=== PATIENT | female | born 1980 | race Hispanic/Latino ===

== ENCOUNTER 2018-04-07 10:19 | Outpatient (CLI) | payer BC | END 2018-04-07 10:20 | disposition home or self-care (01) | LOC: RAD 10:19 | DX: R10.32 Left lower quadrant pain (principal); R10.31 Right lower quadrant pain ==

== ENCOUNTER 2018-05-07 16:00 | Observation (INO) | payer BC ==
[2018-05-07 16:15] VITALS: BMI 39.1
[2018-05-07] MEDS ORDERED: Sodium Chloride 0.9% 1,000 ML IV STA ×2 (16:29→19:19)
[2018-05-07 16:50] LABS: EOS # 0.1 (0.0-0.7); EOS % 0.7 % (1.5-5.0); HEMOGLOBIN 13.6 g/dL (12.0-16.0); LYMPH # 0.3 (1.2-3.4); LYMPH % 3.6 % (22.0-35.0); MEAN CELL VOLUME 79.2 fl (80.0-105.0); MEAN CORPUSCULAR HEMOGLOBIN 25.3 pg (25.0-35.0); MEAN CORPUSCULAR HGB CONC 31.9 g/dl (31.0-37.0); MEAN PLATELET VOLUME 9.9 fl (7.0-11.0); MONO # 0.3 (0.1-0.6); MONO % 3.5 % (1.0-6.0); PLATELET COUNT 285 10^3/uL (120.0-450.0); RBC 5.38 10^6/uL (3.5-6.1); RED CELL DISTRIBUTION WIDTH 15.1 % (11.5-14.5); WHITE BLOOD COUNT 9.2 10^3/uL (4.5-11.0)
[2018-05-07 17:00] LABS: ALB/GLOB RATIO 1.2 (1.1-1.8); ALBUMIN 4.4 g/dL (3.0-4.8); ALT/SGPT 17 U/L (7-56); AST/SGOT 21 U/L (14-36); BLOOD UREA NITROGEN 14 mg/dL (7-21); CALCIUM 8.7 mg/dL (8.4-10.5); GFR NON-AFRICAN AMERICAN > 60; LIPASE 49 U/L (23-300)
[2018-05-07 17:17] LABS: BAND 2 % (0-2); EOSINOPHIL 1 % (0.0-3.0); LYMPHOCYTE 3 % (22.0-35.0); MONOCYTE 6 % (1.0-6.0); NEUTROPHIL 88 % (50.0-70.0)
[2018-05-07 17:18] LABS: ANISOCYTOSIS SLIGHT; PLATELET ESTIMATE NORMAL (NORMAL); POIKILOCYTOSIS SLIGHT
--- NOTE | 2018-05-07 17:42 | ED PDOC ---
Arrival/HPI - General Chief Complaint: Abdominal Pain Time Seen by Provider: 05/07/18 16:05 Historian: Patient - History of Present Illness Narrative History of Present Illness (Text): 05/07/18 17:33 A 37 year old female, whose past medical history includes diverticulits, asthma, anxiety, depression, and SVT/WPW s/p cardiac ablation, presents to the emergency department complaining of nausea, vomiting, diarrhea, and abdominal pain since this morning. Patient reports she ate a normal diet last night but states she woke up with cramping sore periumbilical pain and associated 3 episodes of vomiting that she describes as yellow, non-bilious, and non-bloody. Patient also notes experiencing a decreased appetite, subjective fever, diaphoresis, and state she is unable to keep any liquids down. Patient denies any sick contacts, recent travel, chills, hematemesis, blood in diarrhea, chest pain, shortness of breath, or any other complaints. PMD: [place] Time/Duration: 24 hours Symptom Onset: Gradual Symptom Course: Unchanged Activities at Onset: Light Context: Home Past Medical History - Provider Review Nursing Documentation Reviewed: Yes - Tetanus Immunization Tetanus Immunization: Unknown - Pulmonary Hx Asthma: Yes - Gastrointestinal Hx Diverticulitis: Yes - Psychiatric Hx Anxiety: Yes Hx Depression: Yes Hx Substance Use: No - Surgical History Other/Comment: cardiac ablasion 2004 - Anesthesia Hx Anesthesia: Yes Hx Anesthesia Reactions: No Hx Malignant Hyperthermia: No - Suicidal Assessment Feels Threatened In Home Enviroment: No Family/Social History - Physician Review Nursing Documentation Reviewed: Yes Family/Social History: No Known Family HX Smoking Status: Never Smoked Hx Alcohol Use: Yes Hx Substance Use: No Hx Substance Use Treatment: No Allergies/Home Meds Allergies/Adverse Reactions: Allergies doxycycline Allergy (Verified 05/07/18 16:05) ANAPHYLAXIS nut - unspecified Allergy (Verified 05/07/18 16:05) ANAPHYLAXIS soy Allergy (Verified 05/07/18 16:05) ANAPHYLAXIS Home Medications: Home Meds Medication Instructions Recorded Confirmed Bupropion HCl [Bupropion HCl Xl] 150 mg PO DAILY 06/12/14 03/11/15 Citalopram Hydrobromide 20 mg PO QAM 06/12/14 03/11/15 [Citalopram] Levalbuterol HCl [Xopenex 3 ml] 3 ml IH PRN PRN 06/12/14 03/11/15 Review of Systems - Physician Review All systems were reviewed & negative as marked: Yes - Review of Systems Constitutional: Fevers. absent: Other (chills) Respiratory: absent: SOB Cardiovascular: absent: Chest Pain Gastrointestinal: Diarrhea (denies any blood in diarrhea), Nausea, Vomiting, Appetite Changes (decreased appetite), Other (hematemesis) Endocrine: Diaphoresis Physical Exam Vital Signs Reviewed: Yes Vital Signs Temp Pulse Resp BP Pulse Ox 05/07/18 16:06 98.2 F 116 H 18 140/90 99 Temperature: Afebrile Blood Pressure: Normal Pulse: Tachycardic Respiratory Rate: Normal Mental Status: Positive for: Alert and Oriented X 3 - Systems Exam Head: Present: Atraumatic, Normocephalic Pupils: Present: PERRL Extroacular Muscles: Present: EOMI Conjunctiva: Present: Normal Respiratory/Chest: Present: Clear to Auscultation, Good Air Exchange. No: Respiratory Distress, Accessory Muscle Use Cardiovascular: Present: Tachycardic Abdomen: Present: Tenderness (diffused tenderness). No: Rebound, Guarding, Other (no rigidity) Upper Extremity: Present: Normal Inspection. No: Cyanosis, Edema Lower Extremity: Present: Normal Inspection. No: Edema Neurological: Present: GCS=15, CN II-XII Intact, Speech Normal Skin: Present: Warm, Dry, Normal Color. No: Rashes Psychiatric: Present: Alert, Oriented x 3, Normal Insight, Normal Concentration Medical Decision Making ED Course and Treatment: 05/07/18 17:35 Impression: 37 year old female presenting to the emergency room complaining of nausea, vomiting, diarrhea, and abdominal pain. Plan: -- Abdomen & Pelvis CT -- EKG -- Pepcid -- Zofran -- IV fluids -- Urine culture -- Urinalysis -- Reassess and disposition Prior Visits: Notes and results from previous visits were reviewed. Progress Notes: 05/07/18 17:40 EKG: Ordered, reviewed, and independently interpreted the EKG. Rate : 116 BPM Rhythm : Sinus tachycardia - Lab Interpretations Lab Results: Total Bilirubin 0.5 mg/dL (0.2-1.3) 05/07/18 16:47 AST 21 U/L (14-36) 05/07/18 16:47 ALT 17 U/L (7-56) 05/07/18 16:47 Alkaline Phosphatase 70 U/L (38-126) 05/07/18 16:47 Total Protein 8.0 g/dL (5.8-8.3) 05/07/18 16:47 Albumin 4.4 g/dL (3.0-4.8) 05/07/18 16:47 Globulin 3.6 gm/dL 05/07/18 16:47 Albumin/Globulin Ratio 1.2 (1.1-1.8) 05/07/18 16:47 Lipase 49 U/L (23-300) 05/07/18 16:47 - RAD Interpretation Radiology Orders: 05/07/18 16:29 ABD & PELVIS IV CONTRAST ONLY [CT] Stat - Medication Orders Current Medication Orders: Discontinued Medications Famotidine (Pepcid) 20 mg IVP STAT STA Stop: 05/07/18 16:30 Last Admin: 05/07/18 16:51 Dose: 20 mg IVP Administration Document 05/07/18 16:51 BB (Rec: 05/07/18 16:51 [id number] Charges for Administration # of IVP Administrations 1 Sodium Chloride (Sodium Chloride 0.9%) 1,000 mls @ 1,000 mls/hr IV .Q1H STA Stop: 05/07/18 17:28 Last Admin: 05/07/18 16:51 Dose: 1,000 mls/hr eMAR Start Stop Document 05/07/18 16:51 BB (Rec: 05/07/18 16:51 [id number]) Intravenous Solution Start Date 05/07/18 Start Time 16:51 Ondansetron HCl (Zofran Inj) 4 mg IVP STAT STA Stop: 05/07/18 16:30 Last Admin: 05/07/18 16:51 Dose: 4 mg IVP Administration Document 05/07/18 16:51 BB (Rec: 05/07/18 16:51 BB [id number]) Charges for Administration # of IVP Administrations 1 - Scribe Statement The provider has reviewed the documentation as recorded by the Gayatri Ferguson All medical record entries made by the Scribe were at my direction and personally dictated by me. I have reviewed the chart and agree that the record accurately reflects my personal performance of the history, physical exam, medical decision making, and the department course for this patient. I have also personally directed, reviewed, and agree with the discharge instructions and disposition. Disposition/Present on Arrival - Present on Arrival Any Indicators Present on Arrival: No History of DVT/PE: No History of Uncontrolled Diabetes: No Urinary Catheter: No History of Decub. Ulcer: No History Surgical Site Infection Following: None - Disposition Have Diagnosis and Disposition been Completed?: Yes Diagnosis: Colitis Disposition: HOSPITALIZED Disposition Time: 19:00 Patient Problems: Current Active Problems Problem Status Onset Colitis Acute Condition: STABLE
[2018-05-07 18:32] LABS: PH,URINE 7.5 (4.7-8.0); URINE BILIRUBIN NEGATIVE (NEGATIVE); URINE BLOOD NEGATIVE (NEGATIVE); URINE GLUCOSE (UA) NEGATIVE (NEGATIVE); URINE LEUKOCYTE ESTERASE TRACE Leu/uL (NEGATIVE); URINE PROTEIN TRACE mg/dL (<30 mg/dL); URINE UROBILINOGEN 0.2 E.U./dL (<1 E.U./dL)
[2018-05-07 18:39] LABS: URINE APPEARANCE CLEAR (CLEAR); URINE COLOR YELLOW (YELLOW)
[2018-05-07 18:44] LABS: URINE RBC 0 - 2 /hpf (0-2)
[2018-05-07] MEDS ORDERED: Iohexol 350 MG/100 ML VIAL ONE (20:03)
--- NOTE | 2018-05-07 22:15 | CARD ---
APPROVED REPORT Date of service: 05/07/2018 EKG Measurement Heart [id number] <Conclusion> Sinus tachycardia Possible Left atrial enlargement Incomplete right bundle branch block Possible Anterior infarct, age undetermined NDSTT abnormalities Abnormal ECG
--- NOTE | 2018-05-07 22:54 | ED PDOC ---
Physical Exam Vital Signs Temp Pulse Resp BP Pulse Ox 05/07/18 18:36 98.0 F 98 H 17 134/79 96 05/07/18 16:06 98.2 F 116 H 18 140/90 99 Medical Decision Making ED Course and Treatment: 05/07/18 21:00 Case endorsed to me by . Ct abdomen/pelvis pending. 05/07/18 22:56 patient states that she still feel run down and not strong enough to go home and function. patient reports that she recently finished amoxicillin for strep throat and a course of flagyl for diverticulitis. 05/08/18 00:[address] patino. patient to be admitted for presumed infectious colitis, rule out c.diff. consult to dr. lora and infectious disease - Lab Interpretations Lab Results: Total Bilirubin 0.5 mg/dL (0.2-1.3) 05/07/18 16:47 AST 21 U/L (14-36) 05/07/18 16:47 ALT 17 U/L (7-56) 05/07/18 16:47 Alkaline Phosphatase 70 U/L (38-126) 05/07/18 16:47 Total Protein 8.0 g/dL (5.8-8.3) 05/07/18 16:47 Albumin 4.4 g/dL (3.0-4.8) 05/07/18 16:47 Globulin 3.6 gm/dL 05/07/18 16:47 Albumin/Globulin Ratio 1.2 (1.1-1.8) 05/07/18 16:47 Lipase 49 U/L (23-300) 05/07/18 16:47 Urine Color Yellow (YELLOW) 05/07/18 18:24 Urine Appearance Clear (CLEAR) 05/07/18 18:24 Urine pH 7.5 (4.7-8.0) 05/07/18 18:24 Ur Specific [place] 1.020 (1.005-1.035) 05/07/18 18:24 Urine Protein Trace mg/dL (<30 mg/dL) H 05/07/18 18:24 Urine Glucose (UA) Negative mg/dL (NEGATIVE) 05/07/18 18:24 Urine Ketones 15 mg/dL (NEGATIVE) H 05/07/18 18:24 Urine Blood Negative (NEGATIVE) 05/07/18 18:24 Urine Nitrate Negative (NEGATIVE) 05/07/18 18:24 Urine Bilirubin Negative (NEGATIVE) 05/07/18 18:24 Urine Urobilinogen 0.2 E.U./dL (<1 E.U./dL) 05/07/18 18:24 Ur Leukocyte Esterase Trace Michelle/uL (NEGATIVE) H 05/07/18 18:24 Urine RBC 0 - 2 /hpf (0-2) 05/07/18 18:24 Urine WBC 2 - 5 /hpf (0-6) 05/07/18 18:24 Ur Epithelial Cells 1 - 3 /hpf (0-5) 05/07/18 18:24 - RAD Interpretation Narrative RAD Interpretations (Text): 05/07/18 22:21 Ct abdomen/pelvis IMPRESSION: 1. Evidence of diffuse gastroenteritis and colitis. 2. Very small hiatal hernia; with possible reflux esophagitis. Electronically signed on May 07, 2018 10:21:53 PM EDT by: Gallo Antunez M.D., OCTAVIA Certified By [facility] & [facility] Fellowship Trained MRI and CT Specialist Radiology Orders: 05/07/18 16:29 ABD & PELVIS IV CONTRAST ONLY [CT] Stat Director Integrated: Radiologist - Medication Orders Current Medication Orders: Discontinued Medications Famotidine (Pepcid) 20 mg IVP STAT STA Stop: 05/07/18 16:30 Last Admin: 05/07/18 16:51 Dose: 20 mg IVP Administration Document 05/07/18 16:51 BB (Rec: 05/07/18 16:51 [id number]) Charges for Administration # of IVP Administrations 1 Sodium Chloride (Sodium Chloride 0.9%) 1,000 mls @ 1,000 mls/hr IV .Q1H STA Stop: 05/07/18 17:28 Last Admin: 05/07/18 16:51 Dose: 1,000 mls/hr eMAR Start Stop Document 05/07/18 16:51 BB (Rec: 05/07/18 16:51 BB [id number]) Intravenous Solution Start Date 05/07/18 Start Time 16:51 Sodium Chloride (Sodium Chloride 0.9%) 1,000 mls @ 999 mls/hr IV .Q1H1M STA Stop: 05/07/18 20:19 Last Admin: 05/07/18 19:35 Dose: 999 mls/hr eMAR Start Stop Document 05/07/18 19:35 AD (Rec: 05/07/18 19:36 AD [id number]) Intravenous Solution Start Date 05/07/18 Start Time 19:36 Ketorolac Tromethamine (Toradol) 30 mg IVP STAT STA Stop: 05/07/18 19:20 Last Admin: 05/07/18 19:36 Dose: 30 mg MAR Pain Assessment Document 05/07/18 19:36 AD (Rec: 05/07/18 19:36 [id number]) Pain Reassessment Is this a pain reassessment? No IVP Administration Document 05/07/18 19:36 AD (Rec: 05/07/18 19:36 [id number]) Charges for Administration # of IVP Administrations 1 Ondansetron HCl (Zofran Inj) 4 mg IVP STAT STA Stop: 05/07/18 16:30 Last Admin: 05/07/18 16:51 Dose: 4 mg IVP Administration Document 05/07/18 16:51 BB (Rec: 05/07/18 16:51 BB [id number]) Charges for Administration # of IVP Administrations 1 Disposition/Present on Arrival - Present on Arrival Any Indicators Present on Arrival: No History of DVT/PE: No History of Uncontrolled Diabetes: No Urinary Catheter: No History of Decub. Ulcer: No History Surgical Site Infection Following: None - Disposition Have Diagnosis and Disposition been Completed?: Yes Diagnosis: Colitis Disposition: HOSPITALIZED Disposition Time: 00:02 Patient Plan: Admission Patient Problems: Current Active Problems Problem Status Onset Colitis Acute Condition: STABLE Forms: [employer] (Malay)
[2018-05-07] MEDS ORDERED: Ciprofloxacin 400mg/200ml D5W 400 MG/200 ML BAG IVPB STA (23:00)
[2018-05-07] MEDS ORDERED: metroNIDAZOLE IV 500 mg/100 ml 500 MG/100 ML BAG IVPB STA (23:01)
[2018-05-08] MEDS: Piperacillin/Tazobact 3.375 gm 100 ML IVPB SCH ×3 (08:26→21:36)
--- NOTE | 2018-05-08 08:47 | CT ---
Date of service: 05/07/2018 PROCEDURE: CT Abdomen and Pelvis with contrast HISTORY: diffuse abd. pain- h/o diverticulitis COMPARISON: None available. TECHNIQUE: CT scan of the abdomen and pelvis was performed after administration of intravenous contrast. Oral contrast was not administered. Coronal and sagittal reformatted images were obtained. Contrast dose: 100 mL Omnipaque 350 Radiation dose: Total exam DLP = 999.59 mGy-cm. This CT exam was performed using one or more of the following dose reduction techniques: Automated exposure control, adjustment of the mA and/or kV according to patient size, and/or use of iterative reconstruction technique. FINDINGS: LOWER THORAX: The visualized lungs are clear. LIVER: Mild hepatomegaly and fatty liver. Normal homogeneous enhancement. No gross lesion or ductal dilatation. GALLBLADDER AND BILE DUCTS: Well distended. No calcified gallstones, wall thickening or pericholecystic fluid. PANCREAS: Normal in size with homogeneous enhancement. No gross lesion or ductal dilatation. SPLEEN: Normal in size and appearance. ADRENALS: No discrete nodule. KIDNEYS AND URETERS: Normal in size with homogeneous enhancement. No hydronephrosis. No solid mass. VASCULATURE: No aortic aneurysm. There are no aortic atherosclerotic calcifications or mural plaque present. BOWEL: Evaluation of the bowel is limited in the absence of oral contrast. The proximal small bowel loops are normal in caliber. There are fluid-filled mildly dilated mid and distal small bowel loops. There is fluid in the colon. No bowel wall thickening or obstruction. APPENDIX: No inflammatory changes in the right lower quadrant. PERITONEUM: No free fluid. No free air. LYMPH NODES: No enlarged lymph nodes. BLADDER: Well distended and normal in appearance. REPRODUCTIVE: The uterus is normal in size. BONES: No acute fracture. Within normal limits for the patient's age. OTHER FINDINGS: There is a small sliding hiatal hernia. IMPRESSION: Fluid-filled mildly dilated mid and distal small bowel loops and fluid in colon may represent diarrhea or nonspecific infectious/inflammatory enteritis. No bowel obstruction. A preliminary report was provided by [facility].
[2018-05-08] MEDS ORDERED: Albuterol HFA 90 mcg/actuation (8 g) IH PRN (10:11)
[2018-05-08] MEDS ORDERED: Albuterol 0.083% Inhal Sol (2.5 mg/3 mL) UD IH PRN (10:30)
[2018-05-08] MEDS ORDERED: SALMETEROL IH SCH (11:00)
[2018-05-08] MEDS ORDERED: Budesonide 0.5 mg/2 ml Inhal Susp UD IH SCH ×2 (11:00→20:00)
[2018-05-08] MEDS ORDERED: Arformoterol 15 mcg/2 ml Inh Sol IH SCH ×3 (11:00→20:00)
[2018-05-08] MEDS ORDERED: Fluticasone-Salmeterol 250-50mcg Diskus IH SCH (11:00)
[2018-05-08] MEDS: SALMETEROL IH SCH ×2 (11:18→22:43)
[2018-05-08] MEDS: FLOVENT IH SCH ×2 (11:18→22:43)
[2018-05-08] MEDS ORDERED: Home Med 1 UNIT IH SCH (11:30)
--- NOTE | 2018-05-08 15:05 | HP ---
DATE OF EXAM: 05/08/2018 HISTORY OF PRESENT ILLNESS: She is a 37-year-old female who presented to the emergency room of nauseous, vomiting, diarrhea, abdominal pain, cramping, three episodes of vomiting yellow nonbilious and nonbloody, poor appetite, fevers, sweating, cannot keep the liquids down. PAST MEDICAL HISTORY: She has a past medical history of diverticulitis, asthma, anxiety, depression, status post cardiac ablation was in 2004. FAMILY HISTORY: No known family history. SOCIAL HISTORY: No smoking. She does drink alcohol. No drugs. ALLERGIES: SHE HAS ALLERGIES TO DOXYCYCLINE, NUTS, SOY. MEDICATIONS: She takes the bupropion, citalopram and Xopenex. REVIEW OF SYSTEMS: On review of systems, no acute vision or hearing changes. No sore throat. No neck pain. She has fever and chills. No shortness of breath. No chest pain, diarrhea, nonbloody. There is nausea and vomiting, appetite changes. No constipation. No apparent ulcers or rashes, but she is sweating and chills. PHYSICAL EXAMINATION VITAL SIGNS: She has a 98.2 temperature, 116 pulse, 18 respiratory rate, 140/90 blood pressure and 99% O2 sat. GENERAL: She is alert and oriented x3, nontoxic, but not doing well. HEENT: Head is atraumatic and normocephalic. Extraocular muscles are intact. Pupils equal and reactive to light. Throat is moist. NECK: Supple. HEART: Tachycardic. LUNGS: Decreased breath sounds, but clear to auscultation. No wheezes, rhonchi or rales. ABDOMEN: Diffusely tenderness throughout the whole abdomen. No guarding or rebound. Decreased bowel sounds. EXTREMITIES: No edema. She has little bit obese. NEUROLOGIC: GCS 15. Cranial nerves II-XII grossly intact. SKIN: Warm and dry. No apparent rashes. Alert and oriented x3. LYMPHATICS: Thyroid midline. No palpable appreciable lymphadenopathy. LABORATORY DATA: She had a bunch of tests done. She has a urine which showed trace. She has a 138 sodium, potassium 4.2, BUN 40, creatinine 0.7, GFR is greater than 60, sugar is 109, calcium 8.7, magnesium 1.7, total bili is 0.5, AST is 21, ALT is 17, alk phos 70, total protein is 8, albumin is 4.4 and lipase is 49. White count is 9.2, hemoglobin 13.6, hematocrit 42.6 and platelets of 285. CAT scan of the abdomen and pelvis showed enteritis. Has a history of diverticulitis. She is being seen by GI and Infectious Disease. She was placed on Zosyn. ER doctor started on Cipro, Flagyl, she was changes Zosyn. We will check her labs tomorrow. She will have clear fluids and she will continue with the medications. Hopefully she will improve. Jorge Luis Welch DO [email or web address]
--- NOTE | 2018-05-08 16:58 | CP.PCM.CON ---
<Chucho Rivera - Last Filed: 05/08/18 16:58> History of Present Illness - History of Present Illness History of Present Illness: PGY 5 Gi Consult Hilaria Navarro is a 37F w/ hx of diverticulits, asthma, anxiety, depression, and SVT/WPW s/p cardiac ablation, presents to the emergency department complaining of nausea, vomiting, diarrhea, and abdominal pain for 1 day. Pt states that the onset was sudden. She noted 7-8 out of 10 abd pain in the periumbilical area. Denies any aggravating or alleviating factors. Denied any fever, chills or diaphoresis. Pt noted associated non-bloody diarrhea and non- blood bilous vomiting. Pt had a CT abd in the ER which revealed slightly dilated small bowel loops. She was placed on cipro and flaygl in the ER. Pt reports her uncle with similar complaints during the past week. Denies any recent travel. Pt did have a course of flagyl for possible episode of diverticulitis as an outpt (apparently diag as an oupt clinically no radiographic evidence or hx). Denies any rectal bleeding or weightloss. Pt reports having a colonscopy and EGD > 5years ago. 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 nuts PMHx: see above PShx: denies Family hx: lap olivia mother and aunt, denies any GI related malig Social hxL denies smoking, ETOH, and illicit drugs Endo hx: see above ROS: 12 point ROS conducted, neg other than above Past Patient History - Tetanus Immunizations Tetanus Immunization: Unknown - Past Social History Smoking Status: Never Smoked - PULMONARY Hx Asthma: Yes - MUSCULOSKELETAL/RHEUMATOLOGICAL Hx Falls: No - GASTROINTESTINAL Hx Diverticulitis: Yes - PSYCHIATRIC Hx Anxiety: Yes Hx Depression: Yes - SURGICAL HISTORY Other/Comment: cardiac ablasion 2004 - ANESTHESIA Hx Anesthesia: Yes Hx Anesthesia Reactions: No Hx Malignant Hyperthermia: No Meds Allergies/Adverse Reactions: Allergies Allergy/AdvReac Type Severity Reaction Status Date / Time doxycycline Allergy ANAPHYLAXIS Verified 05/07/18 16:05 nut - unspecified Allergy ANAPHYLAXIS Verified 05/07/18 16:05 soy Allergy ANAPHYLAXIS Verified 05/07/18 16:05 - Medications Medications: Current Medications Albuterol Sulfate (Albuterol 0.083% Inhal Juliann (2.5 Mg/3 Ml) Ud) 2.5 mg IH [id number] PRN PRN Reason: Shortness of Breath Bupropion HCl (Wellbutrin) 75 mg PO BID [facility] Last Admin: 05/08/18 11:18 Dose: 75 mg Citalopram Hydrobromide (Celexa) 25 mg PO DAILY [facility] Home Med (Home Med) 1 unit IH [id number] [facility] Last Admin: 05/08/18 11:18 Dose: 1 unit Home Med (Home Med) 1 unit IH [id number] [facility] Last Admin: 05/08/18 11:18 Dose: 1 unit Piperacillin Sod/Tazobactam Sod (Zosyn 3.375 In Ns 100ml) 100 mls @ 25 mls/hr IVPB Q8 [facility]; Protocol Stop: 05/15/18 07:46 Last Admin: 05/08/18 14:40 Dose: 25 mls/hr Ketorolac Tromethamine (Toradol) 30 mg IVP Q6H PRN PRN Reason: Pain, moderate (4-7) Last Admin: 05/08/18 14:40 Dose: 30 mg Physical Exam - Head Exam Head Exam: ATRAUMATIC, NORMOCEPHALIC - Eye Exam Eye Exam: Normal appearance - ENT Exam ENT Exam: Mucous Membranes Moist, Normal Exam - Neck Exam Neck exam: Positive for: Normal Inspection - Respiratory Exam Respiratory Exam: Clear to Auscultation Bilateral, NORMAL BREATHING PATTERN. absent: Rales, Rhonchi, Wheezes, Respiratory Distress - Cardiovascular Exam Cardiovascular Exam: REGULAR RHYTHM, +S1, +S2 - GI/Abdominal Exam GI & Abdominal Exam: Normal Bowel Sounds, Soft, Tenderness (periumbilical). absent: Diminished Bowel Sounds, Distended, Firm, Guarding, Hernia, Organomegaly, Rebound, Rigid - Extremities Exam Extremities exam: Negative for: joint swelling, pedal edema - Neurological Exam Neurological exam: Alert, Oriented x3 - Psychiatric Exam Psychiatric exam: Normal Affect, Normal Mood - Skin Skin Exam: Dry, Intact, Normal Color, Warm Results - Vital Signs Recent Vital Signs: Last Vital Signs Temp 98.7 F 05/08/18 14:00 Pulse 86 05/08/18 14:00 Resp 18 05/08/18 14:00 BP 113/70 05/08/18 14:00 Pulse Ox 96 05/08/18 14:00 - Labs Result Diagrams: 05/07/18 16:47 05/07/18 16:47 Labs: Laboratory Results - last 24 hr 05/07/18 05/07/18 05/07/18 16:47 16:47 18:24 Neutrophils % (Manual) 88 H Band Neutrophils % 2 Lymphocytes % (Manual) 3 L Monocytes % (Manual) 6 Eosinophils % (Manual) 1 Platelet Evaluation Normal Poikilocytosis (manual Slight Anisocytosis (manual) Slight Sodium 138 Potassium 4.2 Chloride 108 H Carbon Dioxide 22 Anion Gap 13 BUN 14 Creatinine 0.7 Est GFR ( Amer) > 60 Est GFR (Non-Af Amer) > 60 Random Glucose 109 Calcium 8.7 Magnesium 1.7 Total Bilirubin 0.5 AST 21 ALT 17 Alkaline Phosphatase 70 Total Protein 8.0 Albumin 4.4 Globulin 3.6 Albumin/Globulin Ratio 1.2 Lipase 49 Urine Color Yellow Urine Appearance Clear Urine pH 7.5 Ur Specific [place] 1.020 Urine Protein Trace H Urine Glucose (UA) Negative Urine Ketones 15 H Urine Blood Negative Urine Nitrate Negative Urine Bilirubin Negative Urine Urobilinogen 0.2 Ur Leukocyte Esterase Trace H Urine RBC 0 - 2 Urine WBC 2 - 5 Ur Epithelial Cells 1 - 3 Assessment & Plan - Assessment and Plan (Free Text) Assessment: Hilaria Navarro is a 37F w/ hx of atopic allergies, allergic colitis? who presents to the ER with Nausea, vomiting, and diarrhea Acute Gastroenteritis, etiolgy likely viral Abd pain (resolved) likely 2/2 above Nausea and vomiting lkely 2/2 above hx of allergic colitis? Plan: -advance diet to reg as tolerate -zofran PRN -PPI protonix 40mg daily -encourage hydration -no indication for abx from GI standpoint - agree with c.diff and culture if diarrhea persists -no indication for endoscopy at this time D/W Dr. Abdi <Ildefonso Abdi - Last Filed: 05/09/18 16:50> Meds - Medications Medications: Current Medications Albuterol Sulfate (Albuterol 0.083% Inhal Juliann (2.5 Mg/3 Ml) Ud) 2.5 mg IH [id number] PRN PRN Reason: Shortness of Breath Bupropion HCl (Wellbutrin) 75 mg PO BID [facility] Last Admin: 05/09/18 10:27 Dose: 75 mg Citalopram Hydrobromide (Celexa) 25 mg PO DAILY [facility] Last Admin: 05/09/18 10:26 Dose: 25 mg Home Med (Home Med) 1 unit IH [id number] [facility] Last Admin: 05/09/18 10:27 Dose: 1 unit Home Med (Home Med) 1 unit IH [id number] [facility] Last Admin: 05/09/18 10:27 Dose: 1 unit Piperacillin Sod/Tazobactam Sod (Zosyn 3.375 In Ns 100ml) 100 mls @ 25 mls/hr IVPB Q8 [facility]; Protocol Stop: 05/15/18 07:46 Last Admin: 05/09/18 05:23 Dose: 25 mls/hr Sodium Chloride (Sodium Chloride 0.45%) 1,000 mls @ 40 mls/hr IV .Q24H [facility] Last Admin: 05/09/18 11:45 Dose: 40 mls/hr Ketorolac Tromethamine (Toradol) 30 mg IVP Q6H PRN PRN Reason: Pain, moderate (4-7) Last Admin: 05/08/18 14:40 Dose: 30 mg Ondansetron HCl (Zofran Inj) 4 mg IVP Q6H PRN PRN Reason: Nausea/Vomiting Pantoprazole Sodium (Protonix Inj) 40 mg IVP DAILY [facility] Last Admin: 05/09/18 11:44 Dose: 40 mg Results - Vital Signs Recent Vital Signs: Last Vital Signs Temp 98.6 F 05/09/18 06:00 Pulse 63 05/09/18 06:00 Resp 20 05/09/18 06:00 BP 111/76 05/09/18 06:00 Pulse Ox 96 05/09/18 06:00 - Labs Result Diagrams: 05/09/18 07:00 05/09/18 07:00 Labs: Laboratory Results - last 24 hr 05/09/18 05/09/18 05/09/18 07:00 07:00 13:54 WBC 3.9 L D RBC 4.55 Hgb 11.3 L D Hct 36.3 MCV 79.8 L MCH 24.8 L MCHC 31.1 RDW 15.1 H Plt Count 240 MPV 9.9 Sodium 139 Potassium 3.4 L Chloride 106 Carbon Dioxide 25 Anion Gap 11 BUN 7 Creatinine 0.8 Est GFR ( Amer) > 60 Est GFR (Non-Af Amer) > 60 Random Glucose 83 Calcium 8.2 L Total Bilirubin 0.2 AST 32 ALT 22 Alkaline Phosphatase 50 Total Protein 6.3 Albumin 3.1 Globulin 3.3 Albumin/Globulin Ratio 0.9 L Urine Color Yellow Urine Appearance Clear Urine pH 6.0 Ur Specific [place] 1.010 Urine Protein Negative Urine Glucose (UA) Negative Urine Ketones Negative Urine Blood Trace-intact H Urine Nitrate Negative Urine Bilirubin Negative Urine Urobilinogen 0.2 Ur Leukocyte Esterase Small H Urine RBC 1 - 3 H Urine WBC 2 - 5 Ur Epithelial Cells 4 - 5 Urine Bacteria Small Attending/Attestation - Attestation I have personally seen and examined this patient.: Yes I have fully participated in the care of the patient.: Yes I have reviewed all pertinent clinical information: Yes Notes (Text): 05/09/18 16:50 Late entry The pt was seen and examined on Thursday. Chart was reviewed. Findings assessment and recommendations were discussed with Dr. Rivera and documented above.
--- NOTE | 2018-05-08 23:29 | CON ---
DATE: 05/08/2018 The patient is seen earlier today in 578, bed 1. No fever. No chills. CHIEF COMPLAINT: Abdominal pain, diarrhea, nausea and vomiting times 1-day duration. HISTORY OF PRESENT ILLNESS: This is a 37-year-old female with asthma, anxiety, depression, supraventricular tachycardia, WPW, and had a cardiac ablation who was admitted now with GI symptoms and she was seen in the emergency room by Dr. Holder , complaining of nausea, vomiting, diarrhea, and abdominal pain since morning of admission. She had her normal diet. She woke up with cramping, periumbilical pain. She had three episode of vomiting, nonbilious, nonbloody, yellow in color and did not have any fevers in the hospital, but she had subjective fevers and she is unable to tolerate anything p.o. She denies any dysuria or frequency, headaches or blurred vision. PAST MEDICAL HISTORY: Significant for asthma, anxiety, depression, SVT, WPW, and has a history of diverticulitis. PAST SURGICAL HISTORY: Significant for cardiac ablation in 2004. ALLERGIES: THE PATIENT IS ALLERGIC TO DOXYCYCLINE AND TYPE OF ALLERGY IS NOT QUITE CLEAR. MEDICATIONS AT HOME: Include prednisone and nebulizer. PHYSICAL EXAMINATION: GENERAL: The patient is seen in bed, no acute distress, and nontoxic. VITAL SIGNS: Temperature of 98, blood pressure 140/90, respiratory rate of 20, and heart rate of 116. HEENT: Unremarkable. NECK: Supple. LUNGS: Decreased breath sounds. HEART: Normal S1 and S2. ABDOMEN: Soft and nontender. No organomegaly. No rebound. No guarding. No masses. LABORATORY DATA: Reveals a white count of 9.2, hemoglobin of 13, and platelets of 285. Chemistries are noted. Urinalysis is noted. Microbiology is pending. The patient had a CAT scan of the abdomen and pelvis, which showed enteritis and there is nonspecific inflammatory changes. Miguel's note is reviewed. Dr. Jorge Luis Welch's history and physical examination is reviewed. Emergency room chart second note is reviewed. ASSESSMENT AND PLAN: A 37-year-old female with asthma, anxiety, depression, supraventricular tachycardia, [id number], admitted with nausea, vomiting, and tachycardia. Enteritis with tachycardia, etiology of which is not clear. Concern about inflammatory bowel disease. We will check on the cultures of the blood, stool, urine, Clostridium difficile, for pseudomembranous colitis, starting empirically on Zosyn and pending initial workup results and GI evaluation and we will make further recommendations. Mike Castro MD
[2018-05-09] MEDS: Piperacillin/Tazobact 3.375 gm 100 ML IVPB SCH ×3 (05:23→21:15)
[2018-05-09 07:35] LABS: HEMOGLOBIN 11.3 g/dL (12.0-16.0); MEAN CELL VOLUME 79.8 fl (80.0-105.0); MEAN CORPUSCULAR HEMOGLOBIN 24.8 pg (25.0-35.0); MEAN CORPUSCULAR HGB CONC 31.1 g/dl (31.0-37.0); MEAN PLATELET VOLUME 9.9 fl (7.0-11.0); RBC 4.55 10^6/uL (3.5-6.1); RED CELL DISTRIBUTION WIDTH 15.1 % (11.5-14.5); WHITE BLOOD COUNT 3.9 10^3/uL (4.5-11.0)
[2018-05-09 07:57] LABS: ALB/GLOB RATIO 0.9 (1.1-1.8); ALBUMIN 3.1 g/dL (3.0-4.8); ALT/SGPT 22 U/L (7-56); AST/SGOT 32 U/L (14-36); BLOOD UREA NITROGEN 7 mg/dL (7-21); CALCIUM 8.2 mg/dL (8.4-10.5); GFR NON-AFRICAN AMERICAN > 60
[2018-05-09] MEDS: SALMETEROL IH SCH ×2 (10:27→21:16)
[2018-05-09] MEDS: FLOVENT IH SCH ×2 (10:27→21:16)
[2018-05-09] MEDS ORDERED: Sodium Chloride 0.45% 1,000 ML IV SCH ×2 (10:45→10:48)
--- NOTE | 2018-05-09 12:36 | PN ---
DATE: 05/09/2018 SUBJECTIVE: The patient is in bed in no acute distress, nontoxic. She states that she is still having some nausea, unable to tolerate any p.o. She has not had any diarrhea this morning. She is comfortable. PHYSICAL EXAMINATION: VITAL SIGNS: Temperature of 98, blood pressure is 131/70, respiratory of 80, heart rate of 92. HEENT: Unremarkable. NECK: Supple. LUNGS: Have decreased breath sounds. HEART: Normal S1, S2. ABDOMEN: Soft, nontender. LABORATORY EXAMINATION: Reveals a white count is down to 3.9, hemoglobin of 11, platelets of 240. The differential is noted. Chemistries are reviewed. The LFTs are normal. Urinalysis is unremarkable. Blood cultures; the blood cultures are reported to be no growth at 24 hours. CAT scan of the abdomen and pelvis is noted. Review of orders reveals the Clostridium difficile is pending and the stool cultures are still pending. The patient is on Zosyn. ASSESSMENT AND PLAN: This is a 37-year-old female with asthma and anxiety, depression, supraventricular tachycardia, with cardiac ablation in 2004, presenting with gastrointestinal symptoms now and admitted with nausea, vomiting, diarrhea, tachycardia and #1 is enteritis with tachycardia. No fevers. Concerned about inflammatory bowel disease. Patient has also Pseudomembranous colitis and currently on Zosyn. Awaiting for stool culture, stool for Clostridium difficile thus far the blood cultures are negative and workup as per Gastroenterology. We will follow with you. Mike Castro MD
--- NOTE | 2018-05-09 13:02 | PN ---
DATE: 05/09/2018 SUBJECTIVE: She is resting comfortably in bed. She slept fair well last night. She tried to eat some fruit and threw it up. She is okay with some certain clear fluids, not all clear fluids. She is uncomfortable. She is having abdominal pain and nauseousness. She is having enteritis, colitis, MEDICATIONS: She is on albuterol, Celexa, potassium replacement, Protonix IV, IV fluids, Toradol, Wellbutrin, Zofran and Zosyn. PHYSICAL EXAMINATION: VITAL SIGNS: She is a 98.6 temperature, 63 pulse, 111/76 blood pressure, 20 respiratory rate, 96% O2 sat on room air. HEENT: Head is atraumatic and normocephalic. HEART: Regular rate. LUNGS: Decreased breath sounds, bur clear. ABDOMEN: Soft, obese, and nontender. EXTREMITIES: No edema. She is having hard time to keep any food down. Her family is going to bring certain soups that she likes then she thinks she can eat. LABORATORY DATA: She is a 139 sodium, potassium 3.4, I will replace the potassium, BUN 7, creatinine 0.8, GFR is 60, sugar is 83, calcium is 8.2, total bili is 0.2, AST is 32, ALT is 22, alk phos is 50, total protein is 6.3. We are going to redo the urine test. She feels that the urine issue going on; 3.9 white count, 11.3 hemoglobin, 36.3 hematocrit with 245 platelets. ASSESSMENT AND PLAN: She is being seen by Gastroenterology decreased the diet, she could not do it. We will continue with the clear fluids and Infectious Disease. She has on Zosyn, waiting for cultures to come back, but I do think she is having enteritis and I think she is going to may 10% or 15% be better, hopefully, she will improve in another 24 hours. Cass Welch DO [facility]
--- NOTE | 2018-05-09 13:47 | CP.PCM.PN ---
<Chucho Rivera - Last Filed: 05/09/18 13:47> Subjective - Date & Time of Evaluation Date of Evaluation: 05/09/18 Time of Evaluation: 07:30 - Subjective Subjective: PGY5 GI Follow-up Pt seen and examined ambulating denies any BM Denies any n/v/d denies any fever, chills or diaphoresi ROS: 12 point ROS conducted, neg other than above Objective - Vital Signs/Intake and Output Vital Signs (last 24 hours): Temp Pulse Resp BP Pulse Ox 98.6 F 63 20 111/76 96 05/09/18 06:00 05/09/18 06:00 05/09/18 06:00 05/09/18 06:00 05/09/18 06:00 - Medications Medications: Current Medications Albuterol Sulfate (Albuterol 0.083% Inhal Juliann (2.5 Mg/3 Ml) Ud) 2.5 mg IH [id number] PRN PRN Reason: Shortness of Breath Bupropion HCl (Wellbutrin) 75 mg PO BID [facility] Last Admin: 05/09/18 10:27 Dose: 75 mg Citalopram Hydrobromide (Celexa) 25 mg PO DAILY [facility] Last Admin: 05/09/18 10:26 Dose: 25 mg Home Med (Home Med) 1 unit IH [id number] [facility] Last Admin: 05/09/18 10:27 Dose: 1 unit Home Med (Home Med) 1 unit [facility]H [id number] [facility] Last Admin: 05/09/18 10:27 Dose: 1 unit Piperacillin Sod/Tazobactam Sod (Zosyn 3.375 In Ns 100ml) 100 mls @ 25 mls/hr IVPB Q8 [facility]; Protocol Stop: 05/15/18 07:46 Last Admin: 05/09/18 05:23 Dose: 25 mls/hr Sodium Chloride (Sodium Chloride 0.45%) 1,000 mls @ 40 mls/hr IV .Q24H [facility] Last Admin: 05/09/18 11:45 Dose: 40 mls/hr Ketorolac Tromethamine (Toradol) 30 mg IVP Q6H PRN PRN Reason: Pain, moderate (4-7) Last Admin: 05/08/18 14:40 Dose: 30 mg Ondansetron HCl (Zofran Inj) 4 mg IVP Q6H PRN PRN Reason: Nausea/Vomiting Pantoprazole Sodium (Protonix Inj) 40 mg IVP DAILY [facility] Last Admin: 05/09/18 11:44 Dose: 40 mg - Labs Labs: 05/09/18 07:00 05/09/18 07:00 - Constitutional Appears: Well, No Acute Distress - Head Exam Head Exam: ATRAUMATIC, NORMOCEPHALIC - Eye Exam Eye Exam: Normal appearance - ENT Exam ENT Exam: Mucous Membranes Moist, Normal Exam - Neck Exam Neck Exam: Normal Inspection - Respiratory Exam Respiratory Exam: Clear to Ausculation Bilateral, NORMAL BREATHING PATTERN. absent: Rhonchi, Wheezes, Respiratory Distress - Cardiovascular Exam Cardiovascular Exam: REGULAR RHYTHM, +S1, +S2 - GI/Abdominal Exam GI & Abdominal Exam: Soft, Normal Bowel Sounds. absent: Distended, Firm, Guarding, Rigid, Tenderness, Organomegaly, Pulsatile Mass, Rebound - Extremities Exam Extremities Exam: absent: Joint Swelling, Pedal Edema - Neurological Exam Neurological Exam: Alert, Awake, Oriented x3 - Psychiatric Exam Psychiatric exam: Normal Affect, Normal Mood - Skin Skin Exam: Dry, Intact, Normal Color, Warm Assessment and Plan - Assessment and Plan (Free Text) Assessment: Hilaria Navarro is a 37F w/ hx of atopic allergies, allergic colitis? who presents to the ER with Nausea, vomiting, and diarrhea Acute Gastroenteritis, etiolgy likely viral Abd pain (resolved) likely 2/2 above Nausea and vomiting lkely 2/2 above hx of allergic colitis? Plan: -advance diet to reg as tolerate -zofran PRN -PPI protonix 40mg daily -encourage hydration -resolved N/V/D -abx as per ID -okay to d/c from GI standpoint D/W Dr. Abdi <Ildefonso Abdi - Last Filed: 05/09/18 16:57> Objective - Vital Signs/Intake and Output Vital Signs (last 24 hours): Temp Pulse Resp BP Pulse Ox 98.6 F 63 20 111/76 96 05/09/18 06:00 05/09/18 06:00 05/09/18 06:00 05/09/18 06:00 05/09/18 06:00 - Medications Medications: Current Medications Albuterol Sulfate (Albuterol 0.083% Inhal Juliann (2.5 Mg/3 Ml) Ud) 2.5 mg IH [id number] PRN PRN Reason: Shortness of Breath Bupropion HCl (Wellbutrin) 75 mg PO BID [facility] Last Admin: 05/09/18 10:27 Dose: 75 mg Citalopram Hydrobromide (Celexa) 25 mg PO DAILY [facility] Last Admin: 05/09/18 10:26 Dose: 25 mg Home Med (Home Med) 1 unit IH [id number] [facility] Last Admin: 05/09/18 10:27 Dose: 1 unit Home Med (Home Med) 1 unit [facility]H [id number] [facility] Last Admin: 05/09/18 10:27 Dose: 1 unit Piperacillin Sod/Tazobactam Sod (Zosyn 3.375 In Ns 100ml) 100 mls @ 25 mls/hr IVPB Q8 [facility]; Protocol Stop: 05/15/18 07:46 Last Admin: 05/09/18 05:23 Dose: 25 mls/hr Sodium Chloride (Sodium Chloride 0.45%) 1,000 mls @ 40 mls/hr IV .Q24H [facility] Last Admin: 05/09/18 11:45 Dose: 40 mls/hr Ketorolac Tromethamine (Toradol) 30 mg IVP Q6H PRN PRN Reason: Pain, moderate (4-7) Last Admin: 05/08/18 14:40 Dose: 30 mg Ondansetron HCl (Zofran Inj) 4 mg IVP Q6H PRN PRN Reason: Nausea/Vomiting Pantoprazole Sodium (Protonix Inj) 40 mg IVP DAILY [facility] Last Admin: 05/09/18 11:44 Dose: 40 mg - Labs Labs: 05/09/18 07:00 05/09/18 07:00 Attending/Attestation - Attestation I have personally seen and examined this patient.: Yes I have fully participated in the care of the patient.: Yes I have reviewed all pertinent clinical information, including history, physical exam and plan: Yes Notes (Text): 05/09/18 16:57 Chart reviewed. Pt examined this am and discussed with Dr. Rivera. Agree with the above-documented findings, assessment and recommendations.
[2018-05-09 13:57] LABS: URINE BILIRUBIN NEGATIVE (NEGATIVE); URINE BLOOD TRACE-INTACT (NEGATIVE); URINE GLUCOSE (UA) NEGATIVE (NEGATIVE); URINE LEUKOCYTE ESTERASE SMALL Leu/uL (NEGATIVE); URINE PROTEIN NEGATIVE mg/dL (<30 mg/dL); URINE UROBILINOGEN 0.2 E.U./dL (<1 E.U./dL)
[2018-05-09 14:06] LABS: URINE APPEARANCE CLEAR (CLEAR); URINE COLOR YELLOW (YELLOW)
[2018-05-09 14:15] LABS: URINE BACTERIA SMALL /hpf
[2018-05-10 03:42] LABS: PH,URINE 6.5 (4.7-8.0); URINE BILIRUBIN NEGATIVE (NEGATIVE); URINE BLOOD TRACE-INTACT (NEGATIVE); URINE GLUCOSE (UA) NEGATIVE (NEGATIVE); URINE LEUKOCYTE ESTERASE MODERATE Leu/uL (NEGATIVE); URINE PROTEIN NEGATIVE mg/dL (<30 mg/dL); URINE UROBILINOGEN 0.2 E.U./dL (<1 E.U./dL)
[2018-05-10 04:44] LABS: URINE APPEARANCE CLEAR (CLEAR); URINE COLOR YELLOW (YELLOW)
[2018-05-10 04:47] LABS: URINE BACTERIA SMALL /hpf; URINE RBC 0 - 2 /hpf (0-2)
[2018-05-10] MEDS: Piperacillin/Tazobact 3.375 gm 100 ML IVPB SCH ×2 (05:12→17:15)
[2018-05-10 07:53] VITALS: O2SAT 99
[2018-05-10 08:08] LABS: HEMOGLOBIN 11.3 g/dL (12.0-16.0); MEAN CORPUSCULAR HEMOGLOBIN 25.2 pg (25.0-35.0); MEAN CORPUSCULAR HGB CONC 31.9 g/dl (31.0-37.0); MEAN PLATELET VOLUME 9.8 fl (7.0-11.0); RBC 4.48 10^6/uL (3.5-6.1); RED CELL DISTRIBUTION WIDTH 15.1 % (11.5-14.5); WHITE BLOOD COUNT 4.6 10^3/uL (4.5-11.0)
[2018-05-10 08:35] LABS: ALB/GLOB RATIO 1.1 (1.1-1.8); ALBUMIN 3.6 g/dL (3.0-4.8); ALT/SGPT 16 U/L (7-56); AST/SGOT 29 U/L (14-36); BLOOD UREA NITROGEN 4 mg/dL (7-21); CALCIUM 8.8 mg/dL (8.4-10.5); GFR NON-AFRICAN AMERICAN > 60
--- NOTE | 2018-05-10 08:35 | CP.PCM.PN ---
<Tawanda Scales - Last Filed: 05/10/18 10:29> Subjective - Date & Time of Evaluation Date of Evaluation: 05/10/18 Time of Evaluation: 08:31 - Subjective Subjective: Patient is doing well. No complaints at this time, no acute overnight events. She is tolerating her diet. Diarrhea and abdominal pain has improved significant ly. She is requesting to go home. 5pt ROS negative except for above. Objective - Vital Signs/Intake and Output Vital Signs (last 24 hours): Temp Pulse Resp BP Pulse Ox 97.8 F 58 L 16 123/80 99 05/10/18 06:00 05/10/18 06:00 05/10/18 06:00 05/10/18 06:00 05/10/18 06:00 Intake and Output: 05/10/18 05/10/18 06:59 18:59 Intake Total 1000 Balance 1000 - Medications Medications: Current Medications Albuterol Sulfate (Albuterol 0.083% Inhal Juliann (2.5 Mg/3 Ml) Ud) 2.5 mg IH [id number] PRN PRN Reason: Shortness of Breath Bupropion HCl (Wellbutrin) 75 mg PO BID [facility] Last Admin: 05/09/18 17:46 Dose: 75 mg Citalopram Hydrobromide (Celexa) 25 mg PO DAILY [facility] Last Admin: 05/09/18 10:26 Dose: 25 mg Home Med (Home Med) 1 unit IH [id number] [facility] Last Admin: 05/09/18 21:16 Dose: 1 unit Home Med (Home Med) 1 unit IH [id number] [facility] Last Admin: 05/09/18 21:16 Dose: 1 unit Piperacillin Sod/Tazobactam Sod (Zosyn 3.375 In Ns 100ml) 100 mls @ 25 mls/hr IVPB Q8 [facility]; Protocol Stop: 05/15/18 07:46 Last Admin: 05/10/18 05:12 Dose: 25 mls/hr Sodium Chloride (Sodium Chloride 0.45%) 1,000 mls @ 40 mls/hr IV .Q24H [facility] Last Admin: 05/09/18 11:45 Dose: 40 mls/hr Ketorolac Tromethamine (Toradol) 30 mg IVP Q6H PRN PRN Reason: Pain, moderate (4-7) Last Admin: 05/08/18 14:40 Dose: 30 mg Ondansetron HCl (Zofran Inj) 4 mg IVP Q6H PRN PRN Reason: Nausea/Vomiting Pantoprazole Sodium (Protonix Inj) 40 mg IVP DAILY [facility] Last Admin: 05/09/18 11:44 Dose: 40 mg - Labs Labs: 05/10/18 07:45 05/09/18 07:00 - Constitutional Appears: Non-toxic, No Acute Distress - Head Exam Head Exam: ATRAUMATIC - ENT Exam ENT Exam: Mucous Membranes Moist, Normal Exam - Respiratory Exam Respiratory Exam: Clear to Ausculation Bilateral, NORMAL BREATHING PATTERN - Cardiovascular Exam Cardiovascular Exam: REGULAR RHYTHM, +S1, +S2 - GI/Abdominal Exam GI & Abdominal Exam: Soft, Normal Bowel Sounds. absent: Tenderness - Neurological Exam Neurological Exam: Alert, Awake, Oriented x3 - Skin Skin Exam: Normal Color, Warm Assessment and Plan - Assessment and Plan (Free Text) Assessment: Assessment: Hilaria Navarro is a 37F w/ hx of atopic allergies, allergic colitis?, SVT/WPW s/p cardiac ablation who presents to the ER with Nausea, vomiting, and diarrhea Acute Gastroenteritis, etiolgy likely viral Abd pain (resolved) likely 2/2 above Nausea and vomiting lkely 2/2 above hx of allergic colitis? Plan: -zofran PRN -PPI protonix 40mg daily, discontinue at time of discharge. -encourage hydration, avoid NSAIDs -Recommend Activia yogurt -resolved N/V/D -abx as per ID -okay to d/c from GI standpoint if tolerating soft, bland diet -Recommend follow up with GI for colonoscopy/EGD evaluation Discussed with Dr. Carvalho, see attestation <Danielle Carvalho - Last Filed: 05/10/18 10:50> Objective - Vital Signs/Intake and Output Vital Signs (last 24 hours): Temp Pulse Resp BP Pulse Ox 97.8 F 58 L 16 123/80 99 05/10/18 06:00 05/10/18 06:00 05/10/18 06:00 05/10/18 06:00 05/10/18 06:00 Intake and Output: 05/10/18 05/10/18 06:59 18:59 Intake Total 1000 Balance 1000 - Medications Medications: Current Medications Albuterol Sulfate (Albuterol 0.083% Inhal Juliann (2.5 Mg/3 Ml) Ud) 2.5 mg IH [id number] PRN PRN Reason: Shortness of Breath Bupropion HCl (Wellbutrin) 75 mg PO BID [facility] Last Admin: 05/10/18 10:05 Dose: 75 mg Citalopram Hydrobromide (Celexa) 25 mg PO DAILY [facility] Last Admin: 05/10/18 10:05 Dose: 25 mg Home Med (Home Med) 1 unit IH [id number] [facility] Last Admin: 05/10/18 10:05 Dose: 1 unit Home Med (Home Med) 1 unit IH [id number] [facility] Last Admin: 05/10/18 10:05 Dose: 1 unit Piperacillin Sod/Tazobactam Sod (Zosyn 3.375 In Ns 100ml) 100 mls @ 25 mls/hr IVPB Q8 [facility]; Protocol Stop: 05/15/18 07:46 Last Admin: 05/10/18 05:12 Dose: 25 mls/hr Sodium Chloride (Sodium Chloride 0.45%) 1,000 mls @ 40 mls/hr IV .Q24H [facility] Last Admin: 05/09/18 11:45 Dose: 40 mls/hr Ketorolac Tromethamine (Toradol) 30 mg IVP Q6H PRN PRN Reason: Pain, moderate (4-7) Last Admin: 05/08/18 14:40 Dose: 30 mg Ondansetron HCl (Zofran Inj) 4 mg IVP Q6H PRN PRN Reason: Nausea/Vomiting Pantoprazole Sodium (Protonix Inj) 40 mg IVP DAILY [facility] Last Admin: 05/10/18 10:05 Dose: 40 mg - Labs Labs: 05/10/18 07:45 05/10/18 07:45 Attending/Attestation - Attestation I have personally seen and examined this patient.: Yes I have fully participated in the care of the patient.: Yes I have reviewed all pertinent clinical information, including history, physical exam and plan: Yes Notes (Text): 05/10/18 10:43 I have seen the examined the pt with the GI fellow. In brief, this is a 37 yo F with PMH of asthma, multiple food allergies, h/o SVT/WPW s/p cardiac ablation and obesity who p/w n/v and diarrhea x few days, stool studies not done as it resolved on its own. Started on Zosyn for presumed infectious colitis. No stool studies done as pt stopped having diarrhea. Tolerating clear liquid diet. To be advanced to solid foods now. Abd: obese, soft, nt, nd Plan: -likely viral gastroenteritis -H2 lora prn as outpt -would recommend d/c abx as no stool studies done and no evidence of continued infection (blood cxs neg) -advance to bland diet -daily probiotic -can f/u with GI as outpt for consideration of EGD/colonoscopy -otherwise, stable for d/c from gi standpoint 05/10/18 10:47
[2018-05-10] MEDS: FLOVENT IH SCH (10:05)
[2018-05-10] MEDS: SALMETEROL IH SCH (10:05)
[2018-05-10 15:18] VITALS: BP 121/79; PULSE 60; RESP 17; TEMP 98.1
--- NOTE | 2018-05-11 01:07 | DS ---
HISTORY OF PRESENT ILLNESS: She is doing lot better. She was able to drink her fluids that her family brought in for her. They are going to bring in food for her. She does not like the food here. If she does well with that, we will discharge her this afternoon. I discussed with the nurse to call me after her family brings in her lunch and she is happy with that. She is definitely doing lot better. No nausea, no vomiting, no diarrhea. PHYSICAL EXAMINATION: VITAL SIGNS: She has a 97.8 temperature, 58 pulse, 123/80 blood pressure, 16 respiratory rate, and 99% of O2 on room air. HEENT: Head is atraumatic and normocephalic. HEART: Regular rate. LUNGS: Decreased breath sounds. ABDOMEN: Soft and nontender. Positive bowel sounds. No organomegaly. No rebound. No CVA tenderness. EXTREMITIES: No edema. MEDICATIONS: She is on albuterol, Celexa, Protonix, Wellbutrin, Zofran, and Zosyn. I will talk to Infectious Disease, to see if she actually needs to be on any antibiotics. The urine did show moderate bacteria. LABORATORY DATA: Sodium 142, potassium 3.6, BUN 12, creatinine 0.8, GFR is greater than 60, sugar is 85, calcium 8.8, total bili is 0.3, AST is 29, ALT is 16, alk phos 52. White count 4.6, hemoglobin 11.3, hematocrit 35.4, and platelets 256. ASSESSMENT AND PLAN: She is definitely improving, I am hoping to discharge her today if she eats her lunch. If she does well without throwing up and no abdominal pain, we will discharge her. have the Pharmacy call me later and I will find out from Infectious Disease what antibiotics he wants her on if any. Diarrhea, enteritis, and colitis. Jorge Luis Welch DO MTDD
--- NOTE | 2018-05-11 08:21 | PN ---
DATE: 05/10/2018 SUBJECTIVE: The patient was seen early this morning in room 578, bed 1. She is doing better, and able to tolerate her diet. OBJECTIVE: VITAL SIGNS: Temperature is 98, blood pressure is 120/70, respiratory rate of 18. HEENT: Unremarkable. NECK: Supple. LUNGS: Have decreased breath sounds. HEART: Normal S1, S2. ABDOMEN: Soft. LABORATORY EXAMINATION: Reveals a white count of 4.6, hemoglobin 11, BUN of 4, creatinine of 0.8. Urinalysis is as noted. HIV is negative. Microbiology reveals the blood cultures are negative. Urine cultures are negative. ASSESSMENT AND PLAN: This is a 37-year-old female with asthma, anxiety, depression, supraventricular tachycardia, cardiac ablation, presenting with gastrointestinal symptoms, now admitted with nausea, vomiting, tachycardia, enteritis. The patient's microbiology reveals no stool cultures were ever obtained, no further antibiotics. We will discontinue the Zosyn. The patient for discharge today. Mike Castro MD
== END 2018-05-10 17:14 | disposition home or self-care (01) ==
LOC: ED 16:00 → INTOOBSV 05-08 00:02 → ERH 05-08 00:02 → 5RSO 05-08 03:11
PROVIDERS: ADMIT Family Medicine; ATTEND Family Medicine
DX: A08.4 Viral intestinal infection, unspecified (principal); F32.89 Other specified depressive episodes; F41.9 Anxiety disorder, unspecified; I45.6 Pre-excitation syndrome; I47.1 Supraventricular tachycardia; J45.909 Unspecified asthma, uncomplicated; K44.9 Diaphragmatic hernia without obstruction or gangrene; K21.0 Gastro-esophageal reflux disease with esophagitis; Z87.892 Personal history of anaphylaxis; Z88.1 Allergy status to other antibiotic agents; Z91.018 Allergy to other foods
CPT/HCPCS: 36415; 74177; 80053; 81001; 81025; 83690; 83735; 85025; 85027; 87040; 87086; 87389; 93005; 96374; 96375; 96376; 99284; C9113; G0378; J0744; J1885; J2405; J2543; J3480; J7030; Q9967